=== PATIENT | female | born 2000 | race Caucasian/White ===

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

== ENCOUNTER → 2023-11-04 10:36 | Outpatient (BNVA) | payer SELFPAY | PROVIDERS: PCP Clinical Nurse Specialist Adult Health; Visit Provider Emergency Medicine | DX: J02.9 Acute pharyngitis, unspecified (principal); R50.9 Fever, unspecified | CPT/HCPCS: 87071; 87400; 87426; 87880 ==